=== PATIENT | female | born 1985 | race Caucasian/White ===

== ENCOUNTER → 2020-02-15 12:00 | Outpatient (BNVA) | payer OTHER, SELFPAY | PROVIDERS: Family Provider Nurse Practitioner; PCP Nurse Practitioner; Visit Provider Nurse Practitioner Family | DX: Z20.828 Contact with and (suspected) exposure to other viral communicable diseases (principal) | CPT/HCPCS: 87426 ==

== ENCOUNTER → 2021-05-28 11:50 | Outpatient (BNVA) | payer SELFPAY | PROVIDERS: Family Provider Nurse Practitioner; PCP Nurse Practitioner; Visit Provider Nurse Practitioner | DX: R53.83 Other fatigue (principal); E55.9 Vitamin D deficiency, unspecified | CPT/HCPCS: 80053; 82306; 82607; 84439; 84443; 84481; 85025 ==

== ENCOUNTER 2022-06-18 19:19 | Emergency (ER) | payer SELFPAY ==
[2022-06-18 19:27] VITALS: BP 136/77; PULSE 87; RESP 18; TEMP 36.6; O2SAT 99
[2022-06-18 19:47] LABS: Basophils # 0.1 10^3/uL (0.0-0.1); Basophils % 0.8 %; Eosinophils # 0.1 10^3/uL (0.0-0.8); Eosinophils % 1.2 %; Hematocrit 39.4 % (37.0-47.0); Hemoglobin 12.8 g/dL (11.5-15.3); Lymphocytes # 3.7 10^3/uL (0.8-4.8); Lymphocytes % 35.3 %; Mean Corpuscular HGB Conc 32.5 g/dL (30.0-36.0); Mean Corpuscular Hemoglobin 29.8 pg (28.0-34.0); Mean Corpuscular Volume 91.8 fl (81-99); Mean Platelet Volume 9.3 fL (7.4-10.4); Monocytes # 0.8 10^3/uL (0.2-0.9); Monocytes % 8.1 %; Neutrophils # 5.61 10^3/uL (1.8-7.7); Neutrophils % 54.2 %; Nucleated Red Blood Cells % 0 %; Platelet Count 345 10^3/cmm (130-400); Red Blood Count 4.29 10^6/uL (4.1-5.3); Red Cell Distribution Width 12.7 % (12.1-15.1); White Blood Count 10.3 10^3/uL (4.0-10.0)
[2022-06-18 20:03] LABS: Alanine Aminotransferase 20 U/L (0-33); Albumin Level 4.3 g/dL (3.5-5.2); Alkaline Phosphatase 62 U/L (35-105); Anion Gap 12.5 (5-19); Aspartate Amino Transferase 20 U/L (0-32); Blood Urea Nitrogen 14 mg/dL (6-20); Calcium 8.5 mg/dL (8.5-10.5); Carbon Dioxide 26 mmol/L (22-29); Chloride 102 mmol/L (98-107); Globulin 2.8 g/dL (1.3-4.6); Glomerular Filtration Rate 139.6 mL/min (90-130); Glucose 77 mg/dL (65-115); HCG, Serum Qual Negative (Negative); Lipase 40 U/L (13-60); Osmolality Calculated 283 mOsm/kg (285-295); Potassium 3.5 mmol/L (3.5-5.1); Sodium 137 mmol/L (136-145); Total Bilirubin 0.3 mg/dL (0.15-1.2); Total Protein 7.1 g/dL (6.6-8.7)
--- NOTE | 2022-06-18 21:10 | CTR_ITS ---
PROCEDURE INFORMATION: Exam: CT Abdomen And Pelvis With Contrast Exam date and time: 06/18/2022 9:20 PM Age: 37 years old Clinical indication: Constipation; Additional info: Abd pain TECHNIQUE: Imaging protocol: Computed tomography of the abdomen and pelvis with contrast. Radiation optimization: All CT scans at this facility use at least one of these dose optimization techniques: automated exposure control; mA and/or kV adjustment per patient size (includes targeted exams where dose is matched to clinical indication); or iterative reconstruction. Contrast material: OMNI 350; Contrast volume: 100 ml; Contrast route: INTRAVENOUS (IV); REPORTING DATA: Count of CT and Cardiac NM exams in prior 12 months: This patient has received 0 known CTs and 0 known cardiac nuclear medicine studies in the 12 months prior to the current study. COMPARISON: No relevant prior studies available. RADIATION DOSE METRICS: Total DLP (mGy-cm): 456.33 FINDINGS: Liver: Hepatic steatosis suspected. Gallbladder and bile ducts: Normal. No calcified stones. No ductal dilation. Pancreas: Normal. No ductal dilation. Spleen: Normal. No splenomegaly. Adrenal glands: Normal. No mass. Kidneys and ureters: Normal. No hydronephrosis. Stomach and bowel: Prominent fluid in the small bowel without dilation suggestive of an enteritis. Appendix: No evidence of appendicitis. Intraperitoneal space: Unremarkable. No free air. No significant fluid collection. Vasculature: Unremarkable. No abdominal aortic aneurysm. Lymph nodes: Unremarkable. No enlarged lymph nodes. Urinary bladder: Unremarkable as visualized. Reproductive: Fluid in the uterine cavity, likely related to menstrual status. Left ovary 18 mm peripherally enhancing cyst, likely reflecting a partially collapsed follicle. Bones/joints: Unremarkable. No acute fracture. Soft tissues: Unremarkable. CT/CT abdomen pelvis w con* [id number] IMPRESSION: 1. Prominent fluid in the small bowel without dilation suggestive of an enteritis. 2. Fluid in the uterine cavity, likely related to menstrual status. 3. Left ovary 18 mm peripherally enhancing cyst, likely reflecting a partially collapsed follicle. 4. Hepatic steatosis suspected.
--- NOTE | 2022-06-18 21:18 | W.ED.ABDPA2 ---
HPI - Abdominal Pain General: Chief Complaint: Abdominal Pain Stated Complaint: ABD Pain Time Seen by Provider: 06/18/22 21:05 Source: patient Mode of arrival: ambulatory Limitations: no limitations History of Present Illness: 37-year-old female states she has been having right lower quadrant pain throughout the day states she does have some chronic abdominal pain from IBS but states that this pain was more severe and in her right lower quadrant no history of surgeries in the past she rates her pain a 5 out of 10 denies any fevers denies any dysuria denies any worsening proving factors. She has had some nausea as well. Associated Symptoms: Denies chills, dysuria and fever(s) Review of Systems Const: Denies: fever(s), chills, body aches or change in appetite Eyes: Denies: blurry vision or eye discomfort ENMT: Denies: throat pain or dental pain Card: Denies: chest pain Resp: Denies: dyspnea GI: Reports: abdominal pain : Denies: dysuria Musc: Denies: neck pain or back pain Skin/Breast: Denies: rash Neuro: Denies: headache(s) Psych: Denies: depression Jamir/Lymph: Denies: easy bruising All/Imm: Denies: urticaria PFSH ED PFSH: Medical History No active medical problems Surgical History Hx of breast implants, bilateral September 2020 Family History Mother Cancer Hypertension Father Lung disease Denies family history of Diabetes Dementia Chronic kidney disease (CKD) Anesthesia complication Bleeding disorder Stroke Social History Smoking and tobacco status: never smoked Second hand smoke exposure: No Smoking risk assessment/counseling performed?: No Alcohol intake: never Desire information about alcohol rehabilitation?: No Counseling given: No Desire information about substance/drug rehabilitation?: No Counseling given: No Adopted: No Caregiver/support person: Yes Lives independently: No Household members: children Housing: House Marital status: Single Number of children: 3 service: No Current occupational status: employed Current occupation: [employer] Current occupational exposures/hazards: No Pets and animals: No Current gender identity: Female Physical Exam Const: COMMON NORMALS: no acute distress, patient oriented x3 and healthy appearing HENMT: COMMON NORMALS: normocephalic and atraumatic HEAD & SCALP: normocephalic and atraumatic Eye: COMMON NORMALS: Equal, round and reactive pupils present and EOMs intact bilaterally PUPIL: Yes Equal, round and reactive pupils present Neck/C-Spine: COMMON NORMALS: full ROM and supple Chest: COMMONS NORMALS: normal inspection of the chest and normal palpation of entire chest wall Resp: COMMON NORMALS: normal respiratory effort, No retractions, No use of accessory muscles and clear to auscultation bilaterally AUSCULTATION: clear to auscultation bilaterally Cardio: COMMON NORMALS: regular rate, regular rhythm and No murmurs present (Cardio) RATE: regular rate RHYTHM: regular rhythm GI: COMMON NORMALS: Normal to inspection, nondistended, normoactive bowel sounds present, Soft to palpation and no masses PALPATION: Yes Soft to palpation and Yes Tenderness to palpation present (GI) Details: RLQ Extremity: COMMON NORMALS: normal to inspection and full ROM Neuro: COMMON NORMALS: patient oriented x3, moves all extremities and no focal motor deficits Psych: COMMON NORMALS: mental status grossly normal, Normal thought process present and cooperative THOUGHT PROCESS: Normal thought process present Skin: COMMON NORMALS: no rashes or lesions noted and no wounds GENERAL SKIN EXAM: no rashes or lesions noted Course Vital Signs: Vital signs: Vital Signs Temperature 97.9 F 06/18/22 19:27 Pulse Rate 87 06/18/22 19:27 Respiratory Rate 18 06/18/22 19:27 Blood Pressure 136/77 06/18/22 19:27 Pulse Oximetry 99 06/18/22 19:27 MDM - Abdominal Pain Medical Decision Making Patient presents with abdominal pain likely from her IBS blood work CT scan here is normal we will prescribe her Bentyl for home she is stable for discharge she is to follow-up with PCP and return if worsening. Lab Data 06/18/22 19:30 06/18/22 19:30 Labs/Radiology: Radiology Impressions Abdomen/Pelvis CT 06/18/22 21:10 IMPRESSION: 1. Prominent fluid in the small bowel without dilation suggestive of an enteritis. 2. Fluid in the uterine cavity, likely related to menstrual status. 3. Left ovary 18 mm peripherally enhancing cyst, likely reflecting a partially collapsed follicle. 4. Hepatic steatosis suspected. Laboratory Results WBC 10.3 10^3/uL (4.0-10.0) H 06/18/22 19: RBC 4.29 10^6/uL (4.1-5.3) 06/18/22 19: Hgb 12.8 g/dL (11.5-15.3) 06/18/22: Hct 39.4 % (37.0-47.0) 06/18/22 19: MCV 91.8 fl (81-99) 06/18/22 19: MCH 29.8 pg (28.0-34.0) 06/18/22: MCHC 32.5 g/dL (30.0-36.0) 06/18/22: RDW 12.7 % (12.1-15.1) 06/18/22: Plt Count 345 10^3/cmm (130-400) 06/18/22: MPV 9.3 fL (7.4-10.4) 06/18/22 19: Neut % (Auto) 54.2 % 06/18/22: Lymph % (Auto) 35.3 % 06/18/22: [place] % (Auto) 8.1 % 06/18/22: Eos % (Auto) 1.2 % 06/18/22: Baso % (Auto) 0.8 % 06/18/22: Neut # (Auto) 5.61 10^3/uL (1.8-7.7) 06/18/22: Lymph # (Auto) 3.7 10^3/uL (0.8-4.8) 06/18/22: [place] # (Auto) 0.8 10^3/uL (0.2-0.9) 06/18/22: Eos # (Auto) 0.1 10^3/uL (0.0-0.8) 06/18/22 19: Baso # (Auto) 0.1 10^3/uL (0.0-0.1) 06/18/22:30 Nucleated RBC % (auto) 0 % 06/18/22 19:30 Nucleated RBCs # 0.0 /100WBC 06/18/22 19:30 Sodium 137 mmol/L (136-145) 06/18/22 19:30 Potassium 3.5 mmol/L (3.5-5.1) 06/18/22 19:30 Chloride 102 mmol/L (98-107) 06/18/22 19:30 Carbon Dioxide 26 mmol/L (22-29) 06/18/22 19:30 Anion Gap 12.5 (5-19) 06/18/22 19:30 BUN 14 mg/dL (6-20) 06/18/22 19:30 Creatinine 0.5 mg/dL (0.5-0.9) 06/18/22 19:30 GFR Calculation 139.6 mL/min (90-130) H 06/18/22 19:30 Glucose 77 mg/dL (65-115) 06/18/22 19:30 Calculated Osmolality 283 mOsm/kg (285-295) L 06/18/22 19:30 Calcium 8.5 mg/dL (8.5-10.5) 06/18/22 19:30 Total Bilirubin 0.3 mg/dL (0.15-1.2) 06/18/22 19:30 AST 20 U/L (0-32) 06/18/22 19:30 ALT 20 U/L (0-33) 06/18/22 19:30 Alkaline Phosphatase 62 U/L (35-105) 06/18/22 19:30 Total Protein 7.1 g/dL (6.6-8.7) 06/18/22 19:30 Albumin 4.3 g/dL (3.5-5.2) 06/18/22 19:30 Globulin 2.8 g/dL (1.3-4.6) 06/18/22 19:30 Lipase 40 U/L (13-60) 06/18/22 19:30 HCG, Qual Negative (Negative) 06/18/22 19:30 Urine Color Yellow (Yellow) 06/18/22 21:36 Urine Appearance Clear (CLEAR) 06/18/22 21:36 Urine pH 8 (5-7) H 06/18/22 21:36 Ur Specific [place] 1.010 (1.005-1.030) 06/18/22 21:36 Urine Protein Neg (Negative) 06/18/22 21:36 Urine Glucose (UA) Norm (Normal) 06/18/22 21:36 Urine Ketones Negative (Negative) 06/18/22 21:36 Urine Blood Neg (Negative) 06/18/22 21:36 Urine Nitrate Negative (Negative) 06/18/22 21:36 Urine Bilirubin Neg (Negative) 06/18/22 21:36 Prot Sulfosalicylic Acd Negative (Negative) 06/18/22 21:36 Urine Urobilinogen Norm mg/dL (Negative) 06/18/22 21:36 Ur Leukocyte Esterase Negative (Negative) 06/18/22 21:36 Discharge Plan Discharge Patient Disposition: Home Clinical Impression: Abdominal pain Condition: Stable Prescriptions: New ondansetron 4 mg tablet,disintegrating 4 mg PO Q6H PRN (Reason: nausea and vomiting) Qty: 14 0RF Protonix 40 mg tablet,delayed release (DR/EC) 40 mg PO DAILY Qty: 60 0RF dicyclomine 20 mg tablet 20 mg PO TID PRN (Reason: abdominal pain) Qty: 30 0RF No Action topiramate [Topamax] 25 mg tablet 25 mg PO .at bedtime Qty: 90 1RF Discharge Orders: Discharge ED (Routine); Ordered 06/18/22 Ordered By: Faby Randall Referrals: Aide Bernabe, SEAMING MACHINE OPERATOR-C [Primary Care Provider] - 1-3 days Discharge Diet: Advance as tolerated Discharge Activity: Resume usual activity Patient Instructions: Abdominal Pain (ED) Coding Level of Care Code ED Polysil[employer] Preparation Worker for Juan Swenson
[2022-06-18] MEDS: iohexol 350 mg/mL 500 mL Btl (per mL) IV (21:20)
[2022-06-18] MEDS: ondansetron 2 mg/ML SDV 2 mL 4 MG IVP (21:29)
[2022-06-18 21:40] LABS: Add Urine Microscopic? NO; Charge for UA Resulting for Rev
[2022-06-18 21:41] LABS: Bilirubin Urine Neg (Negative); Blood Urine Neg (Negative); Glucose Urine UA Norm (Normal); Ketones Urine Negative (Negative); Leukocyte Esterase Urine Negative (Negative); Nitrate Urine Negative (Negative); Protein Urine Neg (Negative); Sulfosalicylic Acid Urine Negative (Negative); Urine Appearance Clear (CLEAR); Urine Color Yellow (Yellow); Urobilinogen Urine Norm (Negative); pH Urine 8 (5-7)
[2022-06-18 22:45] VITALS: BP 124/75; PULSE 75; RESP 14; O2SAT 97
== END 2022-06-18 22:47 | disposition home or self-care (01) ==
PROVIDERS: Emergency Provider Emergency Medicine; PCP Nurse Practitioner
DX: R10.31 Right lower quadrant pain (principal)
CPT/HCPCS: 36415; 74177; 80053; 81003; 83690; 84703; 85025; 96374; 99285; J2405; Q9967

== ENCOUNTER → 2023-01-27 15:41 | Outpatient (BNVA) | payer BC, SELFPAY | PROVIDERS: PCP Nurse Practitioner; Visit Provider Nurse Practitioner | DX: Z00.00 Encounter for general adult medical examination without abnormal findings (principal) | CPT/HCPCS: 80053; 80061 ==